=== PATIENT | female | born 1970 | race Two or more races ===

== ENCOUNTER 2018-12-18 12:40 | Emergency (ER) | payer MEDICAID ==
[~2018-12-18] VITALS: Ht 160 cm; Wt 59.0 kg
[2018-12-18] MEDS ORDERED: MECLIZINE HCL 25 MG TABLET ONE (13:13)
[2018-12-18] MEDS ORDERED: MECLIZINE HCL 12.5 MG TABLET ONE (13:27)
[2018-12-18] MEDS ORDERED: IV NS 0.9% 1,000 ML BAG IV ONE (13:30)
[2018-12-18] MEDS ORDERED: MECLIZINE HCL 12.5 MG TABLET PO ONE (13:30)
[2018-12-18 13:31] LABS: BASOPHILS # (AUTO) 0.1 /CMM (0.0-0.2); EOSINOPHILS % (AUTO) 2.3 % (0.0-6.0); HEMATOCRIT 39 % (33-45); HEMOGLOBIN 12.4 g/dL (11.5-14.8); LYMPHOCYTES % (AUTO) 29.3 % (20.0-44.0); MEAN CORPUSCULAR HGB CONC 32 g/dl (31.0-36.0); MEAN CORPUSCULAR VOLUME 83 fL (82-100); MONOCYTES # (AUTO) 0.4 /CMM (0.1-1.30); MONOCYTES % (AUTO) 6.5 % (2.0-12.0); NEUTROPHILS # (AUTO) 4.1 /CMM (1.8-8.9); NEUTROPHILS % (AUTO) 60.9 % (43.0-81.0); PLATELET COUNT (AUTO) 329 /CMM (150-450); RED BLOOD CELL COUNT(AUTO) 4.67 MIL/uL (4.0-5.2); WHITE BLOOD COUNT (AUTO) 6.8 K/uL (4.3-11.0)
[2018-12-18 13:39] LABS: CALCIUM, SERUM 9.1 mg/dL (8.5-10.1); CREATININE 0.6 mg/dL (0.6-1.3); POTASSIUM 3.9 mmol/L (3.5-5.1)
[2018-12-18 13:45] LABS: ALBUMIN 3.5 g/dL (3.4-5.0); BILIRUBIN,DIRECT 0.1 mg/dL (0.0-0.2); BILIRUBIN,TOTAL 0.6 mg/dL (0.2-1.0); TOTAL PROTEIN, SERUM 7.9 g/dL (6.4-8.2)
--- NOTE | 2018-12-18 13:47 | NUR ---
Patient awake alert malagasy speaking noted able to ambulted to bathroom , flu swab done send to lab
[2018-12-18 14:04] LABS: BILIRUBIN,URINE Negative (NEGATIVE); BLOOD, URINE Moderate Ery/uL (NEGATIVE); COLOR,URINE Yellow (YELLOW); KETONES,URINE Negative (NEGATIVE); LEUKOCYTE ESTERASE ,URINE Negative (NEGATIVE); NITRITE, URINE Negative (NEGATIVE); PROTEIN,URINE Negative (NEGATIVE); UGLUCOSE Negative (NEGATIVE); UROBILINOGEN,URINE 0.2 EU/dL (0.2)
[2018-12-18 14:05] LABS: APPEARANCE,URINE Slightly Hazy (CLEAR)
[2018-12-18 14:12] LABS: BACTERIA,URINE None seen /HPF (None Seen); SQUAMOUS EPITHELIAL CELL,UR Few /HPF (None Seen); WBC,URINE 0-2 /HPF (0-3)
[2018-12-18 14:56] VITALS: BP 123/78
--- NOTE | 2018-12-18 14:56 | NUR ---
Patient discharged to home in stable condition. Written and verbal after care instructions given. Patient verbalizes understanding of instruction.
--- NOTE | 2018-12-18 14:57 | NUR ---
Patient RAC removed noted no edema, no pain cath intact
--- NOTE | 2018-12-18 14:58 | NUR ---
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
== END 2018-12-18 15:00 | disposition home or self-care (01) ==
LOC: ER 12:42
DX: R42 Dizziness and giddiness (principal); Z90.89 Acquired absence of other organs; Z90.49 Acquired absence of other specified parts of digestive tract
CPT/HCPCS: 36415; 70450; 80048; 80076; 81001; 82962; 84703; 85025; 85730; 87804 ×2; 99284; J7030; J8597; 81000-TC

== ENCOUNTER 2019-08-12 03:06 | Emergency (ER) | payer MEDICAID ==
[~2019-08-12] VITALS: Ht 157.5 cm; Wt 61.2 kg
[2019-08-12 03:16] VITALS: BP 145/101
== END 2019-08-12 04:05 | disposition home or self-care (01) ==
LOC: ER 03:09
DX: R03.0 Elevated blood-pressure reading, without diagnosis of hypertension (principal); Z90.89 Acquired absence of other organs; Z90.49 Acquired absence of other specified parts of digestive tract

== ENCOUNTER 2020-05-24 00:31 | Emergency (ER) | payer MEDICAID ==
[~2020-05-24] VITALS: Ht 160 cm; Wt 70.8 kg
--- NOTE | 2020-05-24 01:31 | NUR ---
BIBSELF C/O HEADACHE X 3 DAYS, NOTED SBP 150'S TODAY. PT AOX4 RR EVEN AND UNLABORED. NO SOB NOETD. NO NVD AT THIS TIME. NO ACUTE DISTRESS NOTED. DR. WHITE AT BEDSIDE FOR EVAL.
[2020-05-24] MEDS ORDERED: IBUPROFEN 400 MG TABLET ONE (01:46)
[2020-05-24] MEDS ORDERED: IBUPROFEN 400 MG TABLET PO ONE (02:00)
[2020-05-24] MEDS ORDERED: IBUP-1957 PO (02:03)
--- NOTE | 2020-05-24 02:14 | NUR ---
PT STATES FEELING BETTER. PT CLEARED FOR DISCHARGE PER DR. WHITE. PT RECEIVED DISCHARGE INSTRUCTIONS. PT VERBALIZED UNDERSTANDING. PT AMBULATORY WITH STEADY GAIT.
[2020-05-24 02:15] VITALS: BP 152/89
== END 2020-05-24 02:16 | disposition home or self-care (01) ==
LOC: ER 00:33
DX: R51.9 Headache, unspecified (principal); Z90.89 Acquired absence of other organs; Z90.49 Acquired absence of other specified parts of digestive tract; Z79.899 Other long term (current) drug therapy

== ENCOUNTER 2023-05-07 18:28 | Emergency (ER) | payer MEDICAID, OTHER ==
[~2023-05-07] VITALS: Ht 157.5 cm; Wt 65.8 kg
[~2023-05-07 18:28] MED LIST: IBUP-1957 PO
[2023-05-07 19:40] LABS: BASOPHILS # (AUTO) 0.1 K/uL (0.0-0.2); BASOPHILS % (AUTO) 0.8 % (0.0-2.0); EOSINOPHILS # (AUTO) 0.4 K/uL (0.0-0.7); EOSINOPHILS % (AUTO) 5.5 % (0.0-6.0); HEMATOCRIT 36 % (33-45); HEMOGLOBIN 12.2 g/dL (11.5-14.8); LYMPHOCYTES % (AUTO) 30.1 % (20.0-44.0); MEAN CORPUSCULAR HEMOGLOBIN 29 PG (26.0-33.0); MEAN CORPUSCULAR HGB CONC 34 g/dl (31.0-36.0); MEAN CORPUSCULAR VOLUME 86 fL (82-100); MONOCYTES # (AUTO) 0.4 K/uL (0.1-1.30); MONOCYTES % (AUTO) 6.2 % (2.0-12.0); NEUTROPHILS # (AUTO) 3.7 K/uL (1.8-8.9); NEUTROPHILS % (AUTO) 57.4 % (43.0-81.0); PLATELET COUNT (AUTO) 314 K/uL (150-450); RED BLOOD CELL COUNT(AUTO) 4.19 MIL/uL (4.0-5.2); RED CELL DISTRIBUTION WIDTH 13.7 % (11.5-15.0); WHITE BLOOD COUNT (AUTO) 6.5 K/uL (4.3-11.0)
[2023-05-07 19:50] LABS: CALCIUM, SERUM 8.9 mg/dL (8.5-10.1); CREATININE 0.7 mg/dL (0.6-1.3); POTASSIUM 3.7 mmol/L (3.5-5.1)
[2023-05-07 19:56] LABS: ALBUMIN 3.2 g/dL (3.4-5.0); BILIRUBIN,DIRECT 0.2 mg/dL (0.0-0.2); BILIRUBIN,TOTAL 0.8 mg/dL (0.2-1.0); TOTAL PROTEIN, SERUM 7.4 g/dL (6.4-8.2)
[2023-05-07] MEDS ORDERED: ONDANSETRON HCL/PF 4 MG/2 ML VIAL ONE (20:12)
[2023-05-07] MEDS ORDERED: KETOROLAC TROMETHAMINE 15 MG/ML VIAL ONE (20:12)
[2023-05-07] MEDS ORDERED: LIDOCAINE VISCOUS 2% UD 15 ML UDC ONE (20:13)
[2023-05-07] MEDS ORDERED: MAG HYDROX/AL HYDROX/SIMETH 30 ML UDC ONE (20:13)
[2023-05-07] MEDS ORDERED: FAMOTIDINE/PF INJ 20 MG/2 ML VIAL IV ONE (20:13)
[2023-05-07 20:21] LABS: APPEARANCE,URINE CLEAR (CLEAR); BILIRUBIN,URINE NEGATIVE (NEGATIVE); BLOOD, URINE NEGATIVE Ery/uL (NEGATIVE); COLOR,URINE YELLOW (YELLOW); KETONES,URINE NEGATIVE (NEGATIVE); LEUKOCYTE ESTERASE ,URINE NEGATIVE (NEGATIVE); NITRITE, URINE NEGATIVE (NEGATIVE); PROTEIN,URINE NEGATIVE (NEGATIVE); UGLUCOSE NEGATIVE (NEGATIVE); UROBILINOGEN,URINE 0.2 EU/dL (0.2)
[2023-05-07] MEDS: IV NS 0.9% 1,000 ML BAG IV ONE (20:30)
[2023-05-07] MEDS: FAMOTIDINE/PF INJ 20 MG/2 ML VIAL IV ONE (20:31)
[2023-05-07] MEDS: KETOROLAC TROMETHAMINE 15 MG/ML VIAL IV ONE (20:31)
[2023-05-07] MEDS: LIDOCAINE VISCOUS 2% UD 15 ML UDC MM ONE (20:32)
[2023-05-07] MEDS: ONDANSETRON HCL/PF - ER 4 MG/2 ML VIAL IV ONE (20:32)
[2023-05-07] MEDS: MAG HYDROX/AL HYDROX/SIMETH 30 ML UDC PO ONE (20:32)
[2023-05-07] MEDS ORDERED: FAMO20TA80 PO (20:58)
[2023-05-07] MEDS ORDERED: ONDA4TAB5 PO (20:58)
[2023-05-07 21:24] VITALS: BP 133/80; TEMP 98.2; O2SAT 99
== END 2023-05-07 21:24 | disposition home or self-care (01) ==
LOC: ER 18:28
DX: K29.70 Gastritis, unspecified, without bleeding (principal); R10.30 Lower abdominal pain, unspecified
CPT/HCPCS: 99284; 96374; 96361; 96375 ×2; 85025; 80048; 83690; 80076; 81003; 36415; J3490; J2405 ×2; J7030; J1885

== ENCOUNTER 2024-05-14 16:50 | Emergency (ER) | payer MEDICAID ==
[~2024-05-14] VITALS: Ht 154.9 cm; Wt 64.0 kg
[~2024-05-14 16:50] MED LIST changes: +FAMO20TA80 PO; +ONDA4TAB5 PO
[2024-05-14 18:54] VITALS: BP 140/98; TEMP 98.6; O2SAT 99
== END 2024-05-14 18:56 | disposition home or self-care (01) ==
LOC: ER 16:58
DX: M25.561 Pain in right knee (principal); M25.551 Pain in right hip; Z79.1 Long term (current) use of non-steroidal anti-inflammatories (NSAID); Z90.49 Acquired absence of other specified parts of digestive tract
CPT/HCPCS: 73502; 73564-TC

== ENCOUNTER 2025-02-02 06:46 | Emergency (ER) | payer MEDICAID ==
[~2025-02-02] VITALS: Ht 154.9 cm; Wt 64.0 kg
[2025-02-02] MEDS ORDERED: KETOROLAC TROMETHAMINE 15 MG/ML VIAL ONE (07:23)
[2025-02-02] MEDS ORDERED: ONDANSETRON HCL/PF 4 MG/2 ML VIAL ONE (07:23)
[2025-02-02] MEDS ORDERED: FAMOTIDINE/PF INJ 20 MG/2 ML VIAL IV ONE (07:23)
[2025-02-02 07:29] LABS: PLATELET COUNT (AUTO) 293 K/uL (150-450); RED BLOOD CELL COUNT(AUTO) 4.78 MIL/uL (4.0-5.2); RED CELL DISTRIBUTION WIDTH 14.1 % (11.5-15.0); WHITE BLOOD COUNT (AUTO) 10.0 K/uL (4.3-11.0)
[2025-02-02] MEDS: FAMOTIDINE/PF INJ 20 MG/2 ML VIAL IV ONE (07:29)
[2025-02-02] MEDS: KETOROLAC TROMETHAMINE 15 MG/ML VIAL IV ONE (07:29)
[2025-02-02] MEDS: IV LR 1000 ML 1,000 ML IV ONE (07:29)
[2025-02-02] MEDS: ONDANSETRON HCL/PF 4 MG/2 ML VIAL IVP ONE (07:29)
[2025-02-02 07:41] LABS: ASPARTATE AMINOTRANSFERASE 52.0 U/L (15-37); CALCIUM, SERUM 8.9 mg/dL (8.5-10.1); CREATININE 0.5 mg/dL (0.6-1.3); SODIUM SERUM 143.0 mmol/L (136-145); TOTAL PROTEIN, SERUM 8.3 g/dL (6.4-8.2); UREA NITROGEN, BLOOD 21.0 mg/dL (7-18)
[2025-02-02 07:41] LABS: APPEARANCE,URINE CLEAR (CLEAR); BLOOD, URINE TRACE-INTA Ery/uL (NEGATIVE); LEUKOCYTE ESTERASE ,URINE NEGATIVE (NEGATIVE); NITRITE, URINE NEGATIVE (NEGATIVE); UGLUCOSE NEGATIVE (NEGATIVE)
[2025-02-02 07:42] LABS: PREGNANCY TEST URINE QUAL NEGATIVE (NEGATIVE)
[2025-02-02 07:43] LABS: ADD URINE CULTURE NO; SQUAMOUS EPITHELIAL CELL,UR Few /HPF (None Seen)
[2025-02-02] MEDS ORDERED: DICY10CA37 PO (07:59)
[2025-02-02] MEDS ORDERED: ONDA4TAB11 PO (07:59)
[2025-02-02 09:50] VITALS: BP 128/81; TEMP 98.2; O2SAT 98
== END 2025-02-02 09:51 | disposition home or self-care (01) ==
LOC: ER 06:49
DX: K52.9 Noninfective gastroenteritis and colitis, unspecified (principal); Z79.1 Long term (current) use of non-steroidal anti-inflammatories (NSAID); Z90.49 Acquired absence of other specified parts of digestive tract; Z60.2 Problems related to living alone
CPT/HCPCS: 99284; 96374; 96375; 96361; 85025; 80048; 83690; 80076; 84703; 81001; 36415; J1885; J1308; J2405; J7120